=== PATIENT | male | born 1990 | race Caucasian/White ===

== ENCOUNTER 2021-06-25 15:37 | Emergency (ER) | payer OTHER ==
[~2021-06-25] VITALS: Ht 190.5 cm; Wt 72.7 kg
--- NOTE | 2021-06-25 16:41 | NUR ---
hall cleaner: Pt ambulatory to room from lobby at this time.
[2021-06-25] MEDS ORDERED: LORazepam 1MG TABLET ONE (17:30)
[2021-06-25] MEDS ORDERED: ONDANSETRON ODT 4 MG PO ONE (17:30)
[2021-06-25] MEDS ORDERED: ONDANSETRON ODT 4 MG ONE (17:37)
[2021-06-25 18:06] LABS: BASOPHILS % (AUTO) 1 % (0-1); EOSINOPHILS % (AUTO) 2 % (1-7); LYMPHOCYTES % (AUTO) 29 % (22-44); MEAN CORPUSCULAR HEMOGLOBIN 31.7 pg (27.5-34.5); MEAN CORPUSCULAR HGB CONC 33.7 g/dL (33.2-36.2); MEAN PLATELET VOLUME 6.9 fL (7.4-10.4); MONOCYTES % (AUTO) 11 % (2-9); NEUTROPHILS % (AUTO) 59 % (42-75); PLATELET COUNT 310 x10^3/uL (130-400); RED BLOOD COUNT 4.36 x10^6/uL (4.38-5.82); RED CELL DISTRIBUTION WIDTH 14.3 % (9.4-14.8)
[2021-06-25 18:18] LABS: ALANINE AMINOTRANSFERASE 21 U/L (12-78); ALBUMIN 4.2 g/dL (3.4-5.0); ANION GAP 5 mmol/L (5-15); CHLORIDE 104 mmol/L (98-107); CREATININE 0.82 mg/dL (0.7-1.3)
[2021-06-25 18:21] LABS: ALKALINE PHOSPHATASE 77 U/L (45-117); BILIRUBIN,TOTAL 0.2 mg/dL (0.2-1.0); TOTAL PROTEIN 8.3 g/dL (6.4-8.2)
--- NOTE | 2021-06-25 18:30 | NUR ---
PT MEDICATED PER EMAR FOR NASUEA. PT GIVEN WATER TO DRINK SO HE CAN PROVIDE URINE SAMPLE. PT SLEEPING ON GURNEY AT THIS TIME. PT REMINDED TO PROVIDE URINE SAMPLE.
--- NOTE | 2021-06-25 18:51 | NUR ---
BEDSIDE REPORT TO LAURI CAGLE.
[2021-06-25 19:52] VITALS: BP 114/59
[2021-06-25 20:22] LABS: MICROSCOPIC INDICATED
== END 2021-06-25 20:52 | disposition home or self-care (01) ==
LOC: ED 20:26
DX: R10.11 Right upper quadrant pain (principal); R10.31 Right lower quadrant pain
CPT/HCPCS: 36415; 76700; 80053; 81001; 83690; 85025; 99284; Q0162